=== PATIENT | female | born 1995 ===

== ENCOUNTER 2017-01-13 14:53 | Emergency (ER) | payer SELFPAY ==
[2017-01-13 15:01] VITALS: BP 102/69; PULSE 67; RESP 18; TEMP 98; O2SAT 98
--- NOTE | 2017-01-13 15:12 | C.PDOC ---
History Of Present Illness 21 y/o female presents to ED for evaluation of insect bite to right dorsal of hand sustained yesterday. Patient reports bite is itchy and when scratched became swollen. Patient denies fever, trauma, drainage, numbness, weakness or any other complaints at this time. Time Seen by Provider: 01/13/17 15:03 Chief Complaint (Nursing): Abnormal Skin Integrity History Per: Patient History/Exam Limitations: no limitations Onset/Duration Of Symptoms: Days Current Symptoms Are (Timing): Still Present Location Of Injury: Right: Hand Quality Of Symptoms: Itching Past Medical History Reviewed: Historical Data, Nursing Documentation, Vital Signs Vital Signs: Last Vital Signs Temp 98 F 01/13/17 15:01 Pulse 67 01/13/17 15:01 Resp 18 01/13/17 15:01 BP 102/69 01/13/17 15:01 Pulse Ox 98 01/13/17 15:29 - Medical History PMH: Asthma Surgical History: No Surg Hx Family History: States: No Known Family Hx - Social History Hx Alcohol Use: No Hx Substance Use: No - Immunization History Hx Tetanus Toxoid Vaccination: No Hx Influenza Vaccination: No Hx Pneumococcal Vaccination: No Review Of Systems Except As Marked, All Systems Reviewed And Found Negative. Constitutional: Negative for: Fever, Chills Respiratory: Negative for: Shortness of Breath Gastrointestinal: Negative for: Nausea, Vomiting Musculoskeletal: Positive for: Hand Pain Skin: Positive for: Rash Neurological: Negative for: Weakness, Numbness Physical Exam - Physical Exam Appears: Non-toxic, No Acute Distress Skin: Warm, Dry, Other (Two-1cm insect bite to dorsal right hand w/ mild swelling. No tenderness. No flunctuance. No streaking) Head: Atraumatic, Normacephalic Eye(s): bilateral: Normal Inspection Oral Mucosa: Moist Extremity: Normal ROM, No Tenderness Neurological/Psych: Oriented x3, Normal Speech, Normal Motor, Normal Sensation Gait: Steady ED Course And Treatment O2 Sat by Pulse Oximetry: 98 (RA) Pulse Ox Interpretation: Normal Disposition - Disposition Referrals: [facility] [Outside] Disposition: HOME/ ROUTINE Disposition Time: 15:21 Condition: GOOD Additional Instructions: Wash with soap and water and apply bacitracin. Return if worsened. Prescriptions: Bacitracin Ointment [Bacitracin] 30 gm TOP BID #1 tube Instructions: Insect Bite or Sting (ED) Forms: [facility] (Spanish) - Clinical Impression Clinical Impression: Insect bite - wound - PA / PARTICIPANT ADMINISTRATOR / Resident Statement MD/DO has reviewed & agrees with the documentation as recorded. - Scribe Statement The provider has reviewed the documentation as recorded by the Darrelibgrabiel Hunter All medical record entries made by the Darrelibgrabiel were at my direction and personally dictated by me. I have reviewed the chart and agree that the record accurately reflects my personal performance of the history, physical exam, medical decision making, and the department course for this patient. I have also personally directed, reviewed, and agree with the discharge instructions and disposition.
== END 2017-01-13 15:30 | disposition home or self-care (01) ==
LOC: C.ER 14:53
DX: S60.561A Insect bite (nonvenomous) of right hand, initial encounter (principal); W57.XXXA Bitten or stung by nonvenomous insect and other nonvenomous arthropods, initial encounter